=== PATIENT | male | born 1955 | race Caucasian/White ===

== ENCOUNTER 2016-10-24 07:23 | Day surgery (SDC) | payer OTHER ==
[~2016-10-24 07:23] MED LIST: EPINEPHRINE INJ 1 MG/10 ML DISP.SYRIN ONE; FENTANYL CITRATE INJ/PF 100 MCG/2 ML AMPUL ONE; FLUMAZENIL INJ 0.5 MG/5 ML VIAL IV ONE; GLUCAGON,HUMAN RECOMB 1 MG INJ ONE; GLYCOPYRROLATE INJ 0.4 MG/2 ML VIAL ONE; NALOXONE HCL INJ/PF 0.4 MG/1 ML SDV ONE; ONDANSETRON HCL INJ/PF 4 MG/2 ML SDV ONE
[2016-10-24] MEDS: MIDAZOLAM 2 MG/2 ML INJ ONE ×2 (07:43→07:47)
--- NOTE | 2016-10-24 08:18 | Operative Report ---
Operative Report DATE OF SURGERY: 10/24/16 PREOPERATIVE DIAGNOSIS: Screening for colon carcinoma POSTOPERATIVE DIAGNOSIS: 1. Scattered left colon diverticulosis. 2. Small pedunculated polyp in the left colon at 60 cm from the anal verge OPERATION: 1. Total colonoscopy to cecum. 2. Left colon polypectomy with hot snare SURGEON: TASNEEM LANDON ANESTHESIA: Moderate Sedation TISSUE REMOVED OR ALTERED: 1 polyp COMPLICATIONS: None ESTIMATED BLOOD LOSS: Scant INTRAOPERATIVE FINDINGS: See below PROCEDURE: Obtaining informed consent the patient was taken from the preoperative holding area to the main endoscopy suite where monitoring devices were attached to the patient. Plan and surgical timeout were conducted The patient was placed in the left lateral decubitus position with knees to chest. A perianal examination was performed. There was no visible or palpable anorectal pathology. Sphincter tone was felt to be normal. There is surface of the prostate gland was enlarged. The flexible pediatric colonoscope was advanced through the anal rectal canal, all the way to the cecum. Utilization of the cecum was achieved and the ileocecal valve, the appendiceal orifice and transillumination of the anterior abdominal wall. This was an excellent study on the well-prepped bowel. The colonoscope was withdrawn slowly and methodically checked and the mucosa carefully. There was no evidence of tumor, stricture, bleeding; all pedunculated polyp in the left colon which was removed with a hot snare device medium strength, specimen retrieved and polypectomy site by satisfactorily. Photos taken. There were scattered diverticulosis in the left colon. The scope was slowly withdrawn through the anal rectal canal. Complete visualization of the rectum was achieved with photodocumentation. The scope was withdrawn to the patient's anus. The patient tolerated the procedure well and was taken to the recovery area in stable condition. Guidelines, patient be an appropriate candidate for follow-up colonoscopy in 3 years or less.
--- NOTE | 2016-10-24 08:19 | PDOC DISCHARGE SUMMARY ---
Discharge Summary (SDC) - Discharge Final Diagnosis: Colon polyp; sigmoid diverticulosis Date of Surgery: 10/24/16 Discharge Date: 10/24/16 Condition: Good Treatment or Instructions: [facility] [place] [id number] POST ENDOSCOPY DISCHARGE INSTRUCTIONS 1. Diet: Start clear liquids that a regular diet as tolerated. 2. Resume all preoperative medications. All oral anticoagulants and aspirins can be resumed 24 hours after procedure. 3. If a polypectomy was performed some bleeding per rectum may occur. This should stop within 3 days. If not, please contact the office. 4. If you had a colonoscopy you may experience some bloating and delayed return of normal bowel function for several days, your regular bowel movement pattern should resume within a week. 5. Please contact [facility] at to make an appointment with Dr. Baker for 1 to 3 weeks following procedure. 6. If you have any questions or concerns regarding your care,treatment plan or follow up, please contact our office. 7. Per clinical guidelines we recommend you undergo a repeat colonoscopy in 3 years. Discharge Diet: As Tolerated Discharge Activity: Activity As Tolerated Home Care Assistance: None Needed Report the Following to Your Physician Immediately: Shortness of Breath, Increase in Pain, Fever over 101 Degrees
[2016-10-24 09:07] VITALS: BP 112/62
== END 2016-10-24 09:05 | disposition home or self-care (01) ==
LOC: END 07:23
PROVIDERS: ATTEND Surgery
PROC: 0DBM8ZX Excision of Descending Colon, Via Natural or Artificial Opening Endoscopic, Diagnostic (ICD-10-PCS; principal; 2016-10-24 07:30)
DX: Z12.11 Encounter for screening for malignant neoplasm of colon (principal); D12.4 Benign neoplasm of descending colon; K57.30 Diverticulosis of large intestine without perforation or abscess without bleeding; E78.00 Pure hypercholesterolemia, unspecified; Z79.899 Other long term (current) drug therapy; Z87.891 Personal history of nicotine dependence
CPT/HCPCS: 45385; 88305 ×2; J2250; J0171; J3010; J1610; J2310; J2405; J3490

== ENCOUNTER 2017-02-10 09:24 | Day surgery (SDC) | payer OTHER ==
[2017-02-05 08:58] LABS: ABSOLUTE BASOPHILS # (AUTO) 0.1 10^3/uL (0.0-0.2); ABSOLUTE EOSINOPHILS # (AUTO) 0.4 10^3/uL (0.0-0.6); ABSOLUTE LYMPHOCYTES (AUTO) 2.1 10^3/uL (0.5-4.7); ABSOLUTE MONOCYTES (AUTO) 0.7 10^3/uL (0.1-1.4); ABSOLUTE NEUT (AUTO) 3.6 10^3/uL (1.7-8.2); BASOPHILS % (AUTO) 0.8 % (0-2); EOSINOPHILS % (AUTO) 5.7 % (0-6); HEMATOCRIT 44.1 % (37.9-51.0); HEMOGLOBIN 15.2 g/dL (13.5-17.0); HGB HCT DIFFERENCE 1.5; MEAN CORPUSCULAR HEMOGLOBIN 29.6 pg (27.0-33.4); MEAN CORPUSCULAR HGB CONC 34.6 g/dL (32.0-36.0); MEAN CORPUSCULAR VOLUME 86 fl (80-97); MONOCYTES % (AUTO) 9.7 % (3-13); RED BLOOD COUNT 5.16 10^6/uL (4.35-5.55); RED CELL DISTRIBUTION WIDTH 14.5 % (11.5-14.0); SEGMENTED NEUTROPHILS % (AUTO) 52.8 % (42-78); WHITE BLOOD COUNT 6.8 10^3/uL (4.0-10.5)
[2017-02-05 09:05] LABS: APPEARANCE,URINE CLEAR; BILIRUBIN,URINE NEGATIVE (NEGATIVE); GLUCOSE, URINE NEGATIVE (NEGATIVE); KETONES,URINE NEGATIVE (NEGATIVE); LEUKOCYTE ESTERASE,URINE NEGATIVE (NEGATIVE); NITRITE,URINE NEGATIVE (NEGATIVE); PROTEIN,URINE NEGATIVE (NEGATIVE); URINE SPECIFIC GRAVITY 1.009; UROBILINOGEN,URINE NEGATIVE mg/dL (<2.0)
[2017-02-05 09:19] LABS: ANION GAP 10 (5-19); BLOOD UREA NITROGEN 14 mg/dL (7-20); CALCIUM 9.3 mg/dL (8.4-10.2); CARBON DIOXIDE 31 mmol/L (22-30); CHLORIDE 104 mmol/L (98-107); CREATININE RESULT 1.01 mg/dL (0.52-1.25); GLUCOSE 81 mg/dL (75-110); POTASSIUM 4.3 mmol/L (3.6-5.0); SODIUM 144.8 mmol/L (137-145)
--- NOTE | 2017-02-05 10:33 | RADIOLOGY REPORT (SQ) ---
EXAM DESCRIPTION: CHEST PA/LATERAL COMPLETED DATE/TIME: 02/05/2017 9:22 am REASON FOR STUDY: PRE-OP COMPARISON: None. EXAM PARAMETERS: NUMBER OF VIEWS: two views TECHNIQUE: Digital Frontal and Lateral radiographic views of the chest acquired. RADIATION DOSE: NA LIMITATIONS: none FINDINGS: LUNGS AND PLEURA: No opacities, masses or pneumothorax. No pleural effusion. MEDIASTINUM AND HILAR STRUCTURES: No masses or contour abnormalities. HEART AND VASCULAR STRUCTURES: Heart normal size. No evidence for failure. BONES: No acute findings. HARDWARE: None in the chest. OTHER: No other significant finding. IMPRESSION: NO SIGNIFICANT RADIOGRAPHIC FINDING IN THE CHEST. TECHNICAL DOCUMENTATION: JOB ID: [id number] [employer]- All Rights Reserved
--- NOTE | 2017-02-05 19:31 | EKG REPORT ---
SEVERITY:- ABNORMAL ECG - SINUS RHYTHM IVCD, CONSIDER ATYPICAL LBBB : Confirmed by: Taylor Childs MD 05-Feb-2017 19:30:59
[~2017-02-10 09:24] MED LIST changes: +CEFAZOLIN 2 GM/D5W RTU 2 GM/50 ML RTUPB IV PRN; -EPINEPHRINE INJ 1 MG/10 ML DISP.SYRIN ONE; -FENTANYL CITRATE INJ/PF 100 MCG/2 ML AMPUL ONE; -FLUMAZENIL INJ 0.5 MG/5 ML VIAL IV ONE; -GLUCAGON,HUMAN RECOMB 1 MG INJ ONE; -GLYCOPYRROLATE INJ 0.4 MG/2 ML VIAL ONE; -NALOXONE HCL INJ/PF 0.4 MG/1 ML SDV ONE; -ONDANSETRON HCL INJ/PF 4 MG/2 ML SDV ONE
[2017-02-10] MEDS ORDERED: FENTANYL CITRATE INJ/PF 100 MCG/2 ML AMPUL ONE (10:15)
[2017-02-10] MEDS ORDERED: MIDAZOLAM 2 MG/2 ML INJ ONE (10:15)
[2017-02-10] MEDS ORDERED: PROPOFOL INJ 200 MG/20 ML VIAL IV ONE (10:15)
[2017-02-10] MEDS ORDERED: IBUPROFEN INJ 800 MG/8 ML VIAL IV ONE (10:15)
[2017-02-10] MEDS ORDERED: MORPHINE SULFATE 10 MG/ML INJ ONE (10:16)
[2017-02-10] MEDS: BUPIVACAINE HCL 0.5%-EPI 1:200000 INJ/PF 30 ML VIAL ONE ×2 (10:25→11:02)
[2017-02-10] MEDS ORDERED: LIDOCAINE 1% INJ-PF (10 MG/ML) 30 ML SDV ONE (11:00)
[2017-02-10] MEDS ORDERED: OXYCODONE-ACETAMINOPHEN 5-325 MG TABLET PO PRN ×2 (11:11)
[2017-02-10] MEDS ORDERED: MORPHINE SULFATE 10 MG/ML INJ IV PRN (11:11)
[2017-02-10] MEDS ORDERED: PROMETHAZINE HCL INJ 25 MG/1 ML VIAL IV PRN ×2 (11:11)
[2017-02-10] MEDS ORDERED: DIPHENHYDRAMINE HCL 50 MG/ML VIAL IV PRN (11:11)
[2017-02-10] MEDS ORDERED: MEPERIDINE HCL/PF INJ 25 MG/1 ML DISP.SYRIN IV PRN (11:11)
[2017-02-10] MEDS ORDERED: FENTANYL CITRATE INJ/PF 100 MCG/2 ML AMPUL IV PRN ×3 (11:11)
--- NOTE | 2017-02-10 11:24 | Operative Report ---
Operative Report DATE OF SURGERY: 02/10/17 PREOPERATIVE DIAGNOSIS: Prepatellar bursitis OPERATION: Right prepatellar bursectomy SURGEON: JEFFREY AYERS 1ST [employer] LO[employer]ER AND UNLOADER: ASTRID AMIN ANESTHESIA: LMAC TISSUE REMOVED OR ALTERED: Bursa to pathology ESTIMATED BLOOD LOSS: 75 PROCEDURE: With the patient supine operative table the skin overlying the right prepatellar bursa is infiltrated with a common combination of Marcaine, Xylocaine, and epinephrine. Subsequently midline incision is made over the patella itself and upon entering the prepatellar bursa there is a large amount of fluid emanates. A 10 blade was then used to enucleate the bursa which is a very well-defined fibrotic sac. The wound is then irrigated. Hemostasis obtained with electrocautery. The wound is closed with interrupted Vicryl followed by nylon. Sterile compressive dressing is applied. The patient's return to the PACU in satisfactory condition.
--- NOTE | 2017-02-10 13:12 | EKG REPORT ---
SEVERITY:- ABNORMAL ECG - SINUS RHYTHM PROBABLE LEFT ATRIAL ABNORMALITY NONSPECIFIC IVCD WITH LAFB LEFT VENTRICULAR HYPERTROPHY : Confirmed by: Marco A Thompson MD 10-Feb-2017 13:11:09
[2017-02-10 14:58] VITALS: BP 113/68
== END 2017-02-10 14:00 | disposition home or self-care (01) ==
LOC: OROUT 09:24
PROVIDERS: ATTEND Orthopaedic Surgery
PROC: 0MBN0ZZ Excision of Right Knee Bursa and Ligament, Open Approach (ICD-10-PCS; principal; 2017-02-10 11:15)
DX: M70.41 Prepatellar bursitis, right knee (principal); Z79.82 Long term (current) use of aspirin; Z79.899 Other long term (current) drug therapy
CPT/HCPCS: 93005 ×2; 36415; 85025; 80048; 81001; 88304 ×2; 71020; 93010 ×2; 27340; J2250; J3490 ×2; J3010; J2270; J2704; J0690; J1741; 1320